=== PATIENT | male | born 1980 | race Caucasian/White ===

== ENCOUNTER → 2018-08-06 | Outpatient (CLI) | payer OTHER ==
--- NOTE | 2018-08-07 02:53 | REP ---
Clinical: Trauma/ sprain . Technique: AP, lateral, bilateral oblique and sunrise views. Findings: The osseous structures and joint spaces are intact and relatively age-appropriate with mild age-related changes noted. There is no evidence for acute fracture or dislocation. Lateral view cannot exclude small suprapatellar effusion. Impression: Possible suprapatellar effusion. No acute fracture or dislocation. Electronically Signed by Hussein Haddad MD 08/07/2018 02:45 A
== END ==
LOC: M WUC 11:15
PROVIDERS: ATTEND Physician Assistant
DX: S83.421A Sprain of lateral collateral ligament of right knee, initial encounter (principal); X58.XXXA Exposure to other specified factors, initial encounter; Y92.9 Unspecified place or not applicable

== ENCOUNTER → 2020-06-07 | Outpatient (CLI) | payer BC ==
--- NOTE | 2020-06-07 09:18 | REP ---
INDICATION: PAIN. COMPARISON: None. TECHNIQUE: Axial and lateral views of the os calcis are presented. FINDINGS: Two views of the right calcaneus demonstrate no evidence of fracture subluxation or periosteal reaction. No bony destructive lesion is seen.. There is mild soft tissue swelling in the pre Achilles fat on the lateral radiograph. The Achilles tendon margin appears smooth but the observed soft tissue swelling may be associated with Achilles tendinopathy. This should be correlated clinically.. No evidence of plantar spurring or erosive change. No opaque foreign body noted. IMPRESSION: Soft tissue swelling in the pre Achilles fat question Achilles tendinopathy. Otherwise negative.. <Electronically signed by Peter Potter > 06/07/20 [id number]
== END ==
LOC: M WUC 08:40
PROVIDERS: ATTEND Physician Assistant
DX: M79.671 Pain in right foot (principal)

== ENCOUNTER → 2022-12-15 | Outpatient (REF) | payer OTHER ==
[2022-12-15 17:42] LABS: FERRITIN 266.3 NG/ML (10.5-307.3)
== END ==
LOC: M LAB REF 16:17
PROVIDERS: ATTEND Internal Medicine
DX: E83.110 Hereditary hemochromatosis (principal)

== ENCOUNTER → 2023-07-05 | Outpatient (REF) | payer OTHER | LOC: M LAB REF 11:56 | PROVIDERS: ATTEND Nurse Practitioner Family | DX: M25.562 Pain in left knee (principal); M10.9 Gout, unspecified ==

== ENCOUNTER → 2023-07-18 | Outpatient (CLI) | payer OTHER | LOC: M WUC 14:06 | PROVIDERS: ATTEND Nurse Practitioner Family | DX: M25.562 Pain in left knee (principal) ==

== ENCOUNTER → 2023-08-29 | Outpatient (REF) | payer OTHER ==
[2023-08-29 14:49] LABS: C REACTIVE PROTEIN QUANTITATIV 3.9 MG/DL (<1.0)
[2023-08-29 14:51] LABS: RHEUMATOID FACTOR QUANT 5.9 IU/ML (<14)
[2023-08-29 14:56] LABS: URIC ACID 7.6 MG/DL (3.7-9.2)
[2023-08-30 23:07] LABS: ANA (HEP2) Negative (.); CYCLIC CITRULLINATED PEPTIDE 6 units (0-19)
== END ==
LOC: M LAB REF 14:17
PROVIDERS: ATTEND Nurse Practitioner Family
DX: M10.9 Gout, unspecified (principal); M25.562 Pain in left knee

== ENCOUNTER → 2024-11-19 | Outpatient (REF) | payer OTHER ==
[2024-11-19 13:04] LABS: VITAMIN B12 LEVEL 353.0 PG/ML (211-911)
== END ==
LOC: M LAB REF 12:13
PROVIDERS: ATTEND Internal Medicine
DX: D48.5 Neoplasm of uncertain behavior of skin (principal); R63.5 Abnormal weight gain